=== PATIENT | female | born 1965 | race Caucasian/White ===

== ENCOUNTER 2017-02-14 08:09 | Day surgery (SDC) | payer OTHER | END 2017-02-14 09:46 | disposition short-term general hospital (02) | LOC: SURGOP 08:09 → EDSTATUS 15:42 | PROC: 0DJD8ZZ Inspection of Lower Intestinal Tract, Via Natural or Artificial Opening Endoscopic (ICD-10-PCS; principal; 2017-02-14) | DX: Z12.11 Encounter for screening for malignant neoplasm of colon (principal); K57.30 Diverticulosis of large intestine without perforation or abscess without bleeding; E78.5 Hyperlipidemia, unspecified; G47.00 Insomnia, unspecified; E66.9 Obesity, unspecified; M17.10 Unilateral primary osteoarthritis, unspecified knee; Z68.33 Body mass index [BMI] 33.0-33.9, adult; Z85.41 Personal history of malignant neoplasm of cervix uteri; Z87.01 Personal history of pneumonia (recurrent); Z88.5 Allergy status to narcotic agent; Z88.8 Allergy status to other drugs, medicaments and biological substances; Z79.82 Long term (current) use of aspirin; Z79.899 Other long term (current) drug therapy; Z90.49 Acquired absence of other specified parts of digestive tract; Z90.710 Acquired absence of both cervix and uterus; Z98.890 Other specified postprocedural states | CPT/HCPCS: 01810; G0121; J2175; J2250 ==